=== PATIENT | female | born 1965 | race Caucasian/White ===

== ENCOUNTER 2022-10-07 14:02 | Outpatient (CLI) | payer OTHER ==
[~2022-10-07 14:02] MED LIST: Magnevist 469MG/ML 20 ML VIAL ONE
== END 2022-10-07 14:03 | disposition home or self-care (01) ==
LOC: CSHMRI 14:02
PROVIDERS: ATTEND Psychiatry & Neurology Neurology
DX: G40.109 Localization-related (focal) (partial) symptomatic epilepsy and epileptic syndromes with simple partial seizures, not intractable, without status epilepticus (principal)
CPT/HCPCS: 70553

== ENCOUNTER 2023-11-17 15:38 | Outpatient (CLI) | payer OTHER | END 2023-11-17 15:39 | disposition home or self-care (01) | LOC: CSHMRI 15:38 | PROVIDERS: ATTEND Surgery | DX: M47.812 Spondylosis without myelopathy or radiculopathy, cervical region (principal); M50.30 Other cervical disc degeneration, unspecified cervical region; M53.82 Other specified dorsopathies, cervical region; G95.20 Unspecified cord compression | CPT/HCPCS: 72050; 72141 ==